=== PATIENT | female | born 1955 | race Caucasian/White ===

== ENCOUNTER → 2020-09-11 | Outpatient (CLI) | payer MEDICARE, OTHER | END | disposition home or self-care (01) | LOC: CFH 07:33 | PROVIDERS: ATTEND Internal Medicine | DX: N63.15 Unspecified lump in the right breast, overlapping quadrants (principal) | CPT/HCPCS: 76642; 77065 ==

== ENCOUNTER 2020-09-13 09:54 | Outpatient (CLI) | payer MEDICARE, OTHER ==
[2020-09-13] MEDS ORDERED: SODIUM BICARBONATE 4.2%, 5ML ONE (14:07)
[2020-09-13] MEDS ORDERED: LIDOCAINE 1%, 20ML ONE (14:07)
== END 2020-09-13 23:59 | disposition home or self-care (01) ==
LOC: CFH 09:54
PROVIDERS: ATTEND Internal Medicine
DX: N63.13 Unspecified lump in the right breast, lower outer quadrant (principal)
CPT/HCPCS: 19083; 88305; 77065